=== PATIENT | female | born 1945 | race Caucasian/White ===

== ENCOUNTER 2017-08-29 18:33 | Inpatient (IN) | payer OTHER, MEDICARE ==
[~2017-08-29] VITALS: Ht 167.6 cm; Wt 70.5 kg
[2017-08-29 18:35] VITALS: O2SAT 94
[2017-08-29] MEDS ORDERED: MORPHINE SULFATE 4 MG/ML INJ ONE (18:38)
[2017-08-29] MEDS ORDERED: ONDANSETRON HCL 4 MG/2 ML VIAL ONE (18:38)
[2017-08-29 18:58] LABS: AUTOMATED NEUTROPHIL # 12.5 TH/MM3 (1.8-7.7); BASOPHIL # 0.1 TH/MM3 (0-0.2); BASOPHIL % 0.4 % (0.0-2.0); EOSINOPHIL # 0.1 TH/MM3 (0-0.4); EOSINOPHIL % 0.6 % (0.0-4.0); HEMATOCRIT 40.3 % (35.0-46.0); HEMOGLOBIN 13.3 GM/DL (11.6-15.3); LYMPH % 19.9 % (9.0-44.0); LYMPHOCYTE # 3.3 TH/MM3 (1.0-4.8); MEAN CELL VOLUME 97.9 FL (80.0-100.0); MEAN CORPUSCULAR HEMOGLOBIN 32.2 PG (27.0-34.0); MEAN PLATELET VOLUME 7.4 FL (7.0-11.0); MONO % 3.3 % (0.0-8.0); MONOCYTE # 0.5 TH/MM3 (0-0.9); NEUT % 75.8 % (16.0-70.0); PLATELET COUNT 270 TH/MM3 (150-450); RED BLOOD COUNT 4.12 MIL/MM3 (4.00-5.30); RED CELL DISTRIBUTION WIDTH 13.8 % (11.6-17.2); WHITE BLOOD COUNT 16.5 TH/MM3 (4.0-11.0)
[2017-08-29] MEDS ORDERED: PROMETHAZINE INJ 25 MG/ML VIAL IM ONE (19:00)
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
[2017-08-29 19:14] LABS: PROTHROMBIN TIME - PATIENT 10.6 SEC (9.8-11.6)
[2017-08-29] MEDS ORDERED: IOHEXOL 350 MG/ML 10 ML VIAL (for RAD DIAG) IVCONTRAST ONE (19:14)
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
[2017-08-29] MEDS ORDERED: CHLORHEXIDINE GLUCONATE 2 % 1 PACK (2 CLOTHS) TOP PRN (19:45)
[2017-08-29] MEDS ORDERED: BISACODYL 10 MG SUPP RECTAL PRN (19:45)
[2017-08-29] MEDS ORDERED: LACTULOSE SYRUP 20 GM/30 ML CUP PO PRN (19:45)
[2017-08-29] MEDS ORDERED: MAGNESIUM HYDROXIDE SUSP 30 ML CUP PO PRN (19:45)
[2017-08-29] MEDS ORDERED: MISCELLANEOUS NURSING INFORMATION XX SCH (19:45)
[2017-08-29] MEDS ORDERED: METOCLOPRAMIDE HCL 10 MG/2 ML VIAL IV PUSH PRN (19:45)
[2017-08-29] MEDS ORDERED: SENNOSIDES 8.6 MG TAB PO PRN (19:45)
[2017-08-29] MEDS ORDERED: HYDROmorphone HCL PF 2 MG/ML VIAL IV PUSH PRN ×2 (19:45)
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
[2017-08-29 20:00] VITALS: BP 136/65; PULSE 78; PULSE 82; RESP 20; TEMP 97.3; O2SAT 96
[2017-08-29] MEDS: SODIUM CHLOR 0.9% 1000 ML INJ 1,000 ML IV SCH (20:36)
[2017-08-29] MEDS: ACETAMINOPHEN 1000 MG/100 ML 100 ML IV SCH (20:36)
[2017-08-29] MEDS: METHOCARBAMOL 500 MG TAB PO SCH (20:46)
[2017-08-29] MEDS: DOCUSATE SODIUM 50 MG/SENNA 8.6 MG TAB PO SCH (21:00)
[2017-08-29] MEDS ORDERED: MORPHINE SULFATE 2 MG/ML INJ IV PUSH PRN ×2 (21:00)
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
[2017-08-29] MEDS: LIDOCAINE HCL 5% PATCH T-DERMAL SCH (21:11)
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
[2017-08-29 22:00] VITALS: PULSE 64
[2017-08-30] VITALS (10 sets, daily range): BP systolic 107–145; BP diastolic 65–86; PULSE 74–85; RESP 16–24; TEMP 96.1–98.9; O2SAT 95–99
[2017-08-30] MEDS ORDERED: MAGNESIUM SULFATE INJ 2 GM in SODIUM CHLORIDE 0.9% INJ 96 ML IV PRN (02:30)
[2017-08-30] MEDS ORDERED: POTASSIUM CHLOR 20 MEQ PREMIX 100 ML IV PRN ×2 (02:30)
[2017-08-30] MEDS ORDERED: POTASSIUM CHLOR 40 MEQ PREMIX 100 ML IV PRN ×2 (02:30)
[2017-08-30] MEDS ORDERED: MAGNESIUM OXIDE 400 MG TAB PO PRN (02:30)
[2017-08-30] MEDS ORDERED: POTASSIUM PHOSPHATE MONOBASIC 500 MG TAB PO/TUBE PRN (02:30)
[2017-08-30] MEDS ORDERED: MAGNESIUM SULFATE INJ 4 GM in SODIUM CHLORIDE 0.9% INJ 92 ML IV PRN (02:30)
[2017-08-30] MEDS ORDERED: POTASSIUM PHOSPHATE INJ 30 MMOL in SODIUM CHLOR 0.9% 250 ML INJ 250 ML IV PRN (02:30)
[2017-08-30] MEDS ORDERED: POTASSIUM PHOSPHATE MONOBASIC 500 MG TAB PO PRN (02:30)
[2017-08-30] MEDS ORDERED: SODIUM PHOSPHATE INJ 30 MMOL in SODIUM CHLOR 0.9% 250 ML INJ 240 ML IV PRN (02:30)
[2017-08-30] MEDS ORDERED: POTASSIUM CHLORIDE 25 MEQ EFFERVESCENT TAB PO PRN (02:30)
[2017-08-30] MEDS: ACETAMINOPHEN 1000 MG/100 ML 100 ML IV SCH ×3 (03:21→15:00)
[2017-08-30] MEDS: ONDANSETRON HCL 4 MG/2 ML VIAL IV PUSH PRN ×2 (03:22→07:30)
[2017-08-30] MEDS ORDERED: CHLORHEXIDINE GLUCONATE 2 % 1 PACK (2 CLOTHS) TOP SCH (04:00)
[2017-08-30 04:42] LABS: AUTOMATED NEUTROPHIL # 13.7 TH/MM3 (1.8-7.7); BASOPHIL % 0.1 % (0.0-2.0); HEMATOCRIT 37.5 % (35.0-46.0); HEMOGLOBIN 12.8 GM/DL (11.6-15.3); LYMPH % 6.5 % (9.0-44.0); MEAN CELL VOLUME 97.5 FL (80.0-100.0); MEAN CORPUSCULAR HEMOGLOBIN 33.3 PG (27.0-34.0); MEAN CORPUSCULAR HGB CONC 34.1 % (32.0-36.0); MEAN PLATELET VOLUME 7.8 FL (7.0-11.0); MONO % 4.4 % (0.0-8.0); MONOCYTE # 0.7 TH/MM3 (0-0.9); PLATELET COUNT 218 TH/MM3 (150-450); RED BLOOD COUNT 3.84 MIL/MM3 (4.00-5.30); RED CELL DISTRIBUTION WIDTH 13.9 % (11.6-17.2); WHITE BLOOD COUNT 15.4 TH/MM3 (4.0-11.0)
[2017-08-30] MEDS: METHOCARBAMOL 500 MG TAB PO SCH ×3 (04:48→21:46)
[2017-08-30 05:05] LABS: BICARBONATE 22.7 MEQ/L (21.0-32.0); CALCIUM 8.4 MG/DL (8.5-10.1); CREATININE 0.77 MG/DL (0.50-1.00); MAGNESIUM 2.3 MG/DL (1.5-2.5); PHOSPHORUS 3.2 MG/DL (2.5-4.9)
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
[2017-08-30] MEDS: FAMOTIDINE 20 MG TAB PO SCH ×2 (07:31→19:50)
[2017-08-30] MEDS: SODIUM CHLOR 0.9% 1000 ML INJ 1,000 ML IV SCH (07:32)
[2017-08-30] MEDS: DOCUSATE SODIUM 50 MG/SENNA 8.6 MG TAB PO SCH ×2 (07:32→19:50)
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
[2017-08-30] MEDS: REMOVE OLD LIDOCAINE PATCH T-DERMAL SCH (09:00)
[2017-08-30] MEDS ORDERED: PROMETHAZINE INJ 25 MG/ML VIAL ONE (11:20)
[2017-08-30] MEDS ORDERED: PROMETHAZINE INJ 25 MG/ML VIAL IM ONE (11:20)
[2017-08-30] MEDS ORDERED: GENTAMICIN SULFATE 80 MG/2 ML VIAL ONE (11:54)
[2017-08-30] MEDS ORDERED: ceFAZolin 2 GM PREMIX 50 ML ONE (11:54)
[2017-08-30] MEDS ORDERED: VANCOMYCIN HCL 1000 MG VIAL ONE (11:54)
[2017-08-30] MEDS ORDERED: DEXAMETHASONE SOD PHOS 4 MG/ML VIAL IV ONE (12:00)
[2017-08-30] MEDS ORDERED: PHENYLEPH/NS 1000 MCG/10 ML SYR IV ONE (12:00)
[2017-08-30] MEDS ORDERED: SUCCINYLCHOLINE CHLORIDE 200 MG/10 ML VIAL IV ONE (12:00)
[2017-08-30] MEDS ORDERED: LIDOCAINE HCL 1% PF 5 ML SYRINGE OTHER ONE (12:00)
[2017-08-30] MEDS ORDERED: PROPOFOL 200 MG/20 ML AMP IV ONE (12:00)
[2017-08-30] MEDS ORDERED: ePHEDrine/NS 25 MG/5 ML SYRINGE IV ONE (12:00)
[2017-08-30] MEDS ORDERED: ONDANSETRON HCL 4 MG/2 ML VIAL IV ONE (12:00)
[2017-08-30] MEDS ORDERED: HYDR-3580 PO (12:35)
[2017-08-30] MEDS ORDERED: CALCTAB19 PO (12:35)
[2017-08-30] MEDS ORDERED: XARE10TA PO (12:35)
[2017-08-30] MEDS ORDERED: VITA2000 PO (12:35)
[2017-08-30] MEDS ORDERED: VITA500012 PO (12:35)
[2017-08-30] MEDS ORDERED: WALKER/ADULT/FO1 MIS (12:35)
--- NOTE | 2017-08-30 12:35 | HHI.FF ---
Face to Face Verification Diagnosis: (1) Fracture of left tibia and fibula Physical Therapy Gait training, Safety evaluation, Wheelchair training Left LE Weight Bearing: Non WB Nursing Dressing Changes: Do not change dressing I have seen patient Donna Sánchez on 08/30/17. My clinical findings support the need for the requested home health care services because: Ltd mobility - disease progression I certify that my clinical findings support that this patient is homebound because: Post-op weakness Trevor Clark/[employer] HORTENCIA Aug 30, 2017 12:35
--- NOTE | 2017-08-30 12:37 | PD.ORT.PN ---
Subjective Subjective Remarks POD 0 s/p IMN left tibia and ORIF left distal fibula stable in PACU Objective Vitals Vital Signs Date Time Temp Pulse Resp B/P (MAP) Pulse Ox O2 Delivery O2 Flow Rate FiO2 08/30/17 12:04 98.5 79 20 116/68 (84) 95 08/30/17 11:08 98.5 74 20 93/56 (68) 95 08/30/17 10:00 78 08/30/17 08:00 97.6 74 17 113/71 (85) 98 08/30/17 08:00 98 Nasal Cannula 4.00 08/30/17 08:00 74 08/30/17 06:00 79 08/30/17 04:00 98.9 85 24 128/74 (92) 95 08/30/17 04:00 78 08/30/17 02:16 96 Nasal Cannula 4.00 08/30/17 02:00 77 08/30/17 00:00 76 08/30/17 00:00 97.6 76 23 131/65 (87) 99 08/29/17 22:00 64 08/29/17 20:00 97.3 78 20 136/65 (88) 96 08/29/17 20:00 96 Nasal Cannula 6.00 08/29/17 20:00 82 08/29/17 18:35 94 4.00 I/O 08/29/17 08/29/17 08/29/17 08/30/17 08/30/17 08/30/17 07:00 15:00 23:00 07:00 15:00 23:00 Intake Total 1039 ml Output Total 900 ml Balance 139 ml Intake IV Total 1039 ml Output Urine Total 900 ml Result Diagram: 08/30/17 0349 08/30/17 0349 Other Results Laboratory Tests Test 08/29/17 18:35 Prothromb Time International Ratio 1.0 RATIO Prothrombin Time 10.6 SEC (9.8-11.6) Imaging Last 24 hours Impressions Chest X-Ray 08/30/17 0000 Signed Impressions: Service Date/Time: Wednesday, August 30, 2017 04:12 - CONCLUSION: 1. Interval development of left lower lobe airspace disease and probable small pleural effusion. Grant Kohler MD Thoracic Spine CT 08/29/17 3376 Signed Impressions: Service Date/Time: August 18:52 - CONCLUSION: No acute disease. Satnam Egan Jr., MD Pelvis X-Ray 08/29/171834 Signed Impressions: Service Date/Time: August 18:35 - CONCLUSION: Acute pubic rami fractures on the left. Satnam Egan Jr., MD Maxillofacial CT 08/29/171834 Signed Impressions: Service Date/Time: August 18:48 - CONCLUSION: No acute disease. Satnam Egan Jr., MD Lumbar Spine CT 08/29/171834 Signed Impressions: Service Date/Time: August 18:52 - CONCLUSION: 1. No fracture or dislocation. 2. Bilateral L5 pars defects with grade 1 anterolisthesis. 3. Degenerative changes. Satnam Egan Jr., MD Head CT 08/29/171834 Signed Impressions: Service Date/Time: August 18:45 - CONCLUSION: No acute disease. Satnam Egan Jr., MD Chest X-Ray 08/29/171834 Signed Impressions: Service Date/Time: August 18:35 - CONCLUSION: No acute disease. Satnam Egan Jr., MD Chest CT 08/29/171834 Signed Impressions: Service Date/Time: August 18:54 - CONCLUSION: 1. Small left pneumothorax. 2. Acute left second through seventh rib fractures and left scapular fracture. 3. Scattered areas of dependent atelectasis. Satnam Egan Jr., MD Cervical Spine CT 08/29/171834 Signed Impressions: Service Date/Time: August 18:47 - CONCLUSION: 1. No fracture or dislocation. 2. Multilevel degenerative changes. Satnam Egan Jr., MD Abdomen/Pelvis CT 08/29/171834 Signed Impressions: Service Date/Time: August 18:54 - CONCLUSION: 1. Acute fractures involving the superior and inferior pubic rami on the left with an associated small hematoma within the pelvis. Satnam Egan Jr., MD Objective Remarks LLE: +short leg splint present in good repair. +cap refill Assessment & Plan Assessment and Plan 1) Left distal Tibia and fibula fxs s/p IMN - POD 0 -NWB -elevate -maintain splint at all times -DVT prophylaxis -DC home with [facility] vs SNF placement -plan for DC home when stable -f/u with Shila or PA in 2 weeks Trevor Clark/First Hilda BURNETT Aug 30, 2017 12:37
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
--- NOTE | 2017-08-30 13:22 | PD.OP ---
cc: Sharad Kay MD Operative Report Date of Surgery: Aug 30, 2017 Preoperative Diagnosis: Displaced left distal tibia and fibula shaft fractures Postoperative Diagnosis: Procedure: Left tibia reduction and intramedullary nail fixation Left fibula reduction and internal fixation Anesthesia: Gen. Surgeon: Sharad Kay Sign Artist(s): JORDYN Benítez PA-C The surgical procedure was assisted by my physician assistant paralegal. My P.A. presence was necessary throughout this case for the manipulation and positioning of the surgical extremity. My P.A. was assisting me throughout the duration of this procedure. The skill set of a physician assistant paralegal was medically necessary to complete this procedure. During the surgical case the radiation technician was working at the back table and the physician assistant paralegal was directly assisting me. Operation and Findings: Implants: ITS [10]mm x [345]mm tibial nail Plan of activity: Nonweightbearing left leg Patient was seen and examined preoperatively. An informed consent was obtained from patient after detailed discussion of risk and benefits. Risks of surgery include bleeding, infection, painful hardware, nonunion, malunion, leg length discrepancy, need for hardware removal, and medical complications associated with anesthesia including blood clots, stroke, heart attack, and were discussed. Operative site was marked. Patient was brought to the operating room placed on or table. Patient received IV antibiotics and was given IV sedation GETA. Operative leg was prepped with alcohol Hibiclens and draped in usual sterile fashion. Timeout procedure was performed Procedure began with reduction of fracture. 2 small incisions were made around the fracture site. A percutaneous clamp was placed. Traction was applied. Fracture was reduced. There was comminution of the fracture. The fracture reduced and excellent alignment was achieved. Next a 3 cm incision was made proximal to the patella. Quadriceps tendon was split in line with fibers. Cannulas were placed in the patellofemoral joint to protect the articular surface at all times. A guidepin was placed into the tibia and advanced in the tibial canal. Fluoroscopy was used to confirm appropriate guidepin placement. An opening reamer was used to open the tibial canal. A ball-tipped guidewire was advanced down the tibial canal. Guidepin was passed across the fracture site into the center of the distal tibia. Fluoroscopy confirmed guidepin placement. The nail length was now measured. The fracture was now held in a reduced position and the canal was reamed. The canal was reamed up to appropriate size. A ITS nail was now selected. Next the nail was fully seated. Using perfect [place] technique 4 distal interlocking screws were placed. The nail was now gently back slapped to compress fracture. Using the insertion handle as a guide 1 proximal interlocking screw was placed. Fluoroscopy confirmed excellent of fracture with well-placed hardware. Next attention was turned to the fibula. The fibular fracture was gently manipulated. Percutaneous reduction was achieved. A 1 similar incision was made distal to the fibula. A drill was used to penetrate the cortex of the distal fibula. Next an Otto type flexible marc was selected. The flexible nail was now placed into the fibula. The fracture was held in reduced position. The marc was advanced across the fracture site into the fibular shaft. Fluoroscopy confirmed appropriate reduction of fracture with well- placed hardware. Incisions and the knee joint were thoroughly irrigated with sterile saline. Fascia was closed with #1 Vicryl, subcutaneous tissues closed with 3-0 Vicryl and skin was closed with yasmine. Sterile dressings and well padded splint were applied. Patient was awakened and transferred to recovery in stable condition. Sharad Kay MD Aug 30, 2017 13:22
[2017-08-30] MEDS ORDERED: DO NOT ADM ANY ANTICOAGULANT DRUGS PRN (13:50)
[2017-08-30] MEDS ORDERED: diphenhydrAMINE HCL 25 MG CAP PO PRN (14:15)
[2017-08-30] MEDS ORDERED: ERGOCALCIFEROL (VIT D2) 50,000 UNIT CAP PO SCH (14:15)
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
[2017-08-30] MEDS: LACTATED RINGER'S 1000 ML INJ 1,000 ML IV SCH (15:00)
[2017-08-30] MEDS: CALCIUM/VITAMIN D 250 MG/125 U TAB PO SCH (18:00)
[2017-08-30] MEDS: ACETAMINOPHEN/HYDROcodone 325 MG/7.5 MG TAB PO PRN (18:00)
[2017-08-30] MEDS: ceFAZolin 2 GM PREMIX 50 ML IV SCH (19:49)
[2017-08-30] MEDS: LIDOCAINE HCL 5% PATCH T-DERMAL SCH (19:51)
[2017-08-31] VITALS (9 sets, daily range): BP systolic 97–147; BP diastolic 58–72; PULSE 69–83; RESP 16–20; TEMP 96–98.7; O2SAT 84–96
[2017-08-31] MEDS: ENOXAPARIN SODIUM 30 MG/0.3 ML SYRINGE SQ SCH (01:12)
[2017-08-31] MEDS: LACTATED RINGER'S 1000 ML INJ 1,000 ML IV SCH ×4 (01:14→22:25)
[2017-08-31] MEDS: VANCOMYCIN INJ 1,000 MG in SODIUM CHLOR 0.9% 250 ML INJ 250 ML IV SCH ×2 (01:15→12:02)
[2017-08-31 04:07] LABS: AUTOMATED NEUTROPHIL # 10.6 TH/MM3 (1.8-7.7); BASOPHIL % 0.4 % (0.0-2.0); EOSINOPHIL % 0.1 % (0.0-4.0); HEMATOCRIT 32.1 % (35.0-46.0); HEMOGLOBIN 10.7 GM/DL (11.6-15.3); LYMPH % 9.4 % (9.0-44.0); LYMPHOCYTE # 1.2 TH/MM3 (1.0-4.8); MEAN CELL VOLUME 96.8 FL (80.0-100.0); MEAN CORPUSCULAR HEMOGLOBIN 32.1 PG (27.0-34.0); MEAN CORPUSCULAR HGB CONC 33.2 % (32.0-36.0); MEAN PLATELET VOLUME 7.6 FL (7.0-11.0); MONO % 4.3 % (0.0-8.0); MONOCYTE # 0.5 TH/MM3 (0-0.9); NEUT % 85.8 % (16.0-70.0); PLATELET COUNT 177 TH/MM3 (150-450); RED BLOOD COUNT 3.32 MIL/MM3 (4.00-5.30); RED CELL DISTRIBUTION WIDTH 13.7 % (11.6-17.2); WHITE BLOOD COUNT 12.3 TH/MM3 (4.0-11.0)
[2017-08-31] MEDS: ceFAZolin 2 GM PREMIX 50 ML IV SCH ×2 (04:30→12:02)
[2017-08-31 04:34] LABS: ALBUMIN 2.9 GM/DL (3.4-5.0); AST (GOT) 35 U/L (15-37); BICARBONATE 24.1 MEQ/L (21.0-32.0); BLOOD UREA NITROGEN 11 MG/DL (7-18); CALCIUM 8.2 MG/DL (8.5-10.1); CHLORIDE 105 MEQ/L (98-107); CREATININE 0.69 MG/DL (0.50-1.00); GLOMERULAR FILTRATION RATE 84 ML/MIN (>89); GLUCOSE,RANDOM 106 MG/DL (74-106); SODIUM (NA) 138 MEQ/L (136-145)
[2017-08-31 04:37] LABS: ALKALINE PHOSPHATASE 54 U/L (45-117); ALT (GPT) 26 U/L (10-53); TOTAL BILIRUBIN ADULT 0.4 MG/DL (0.2-1.0); TOTAL PROTEIN 6.2 GM/DL (6.4-8.2)
[2017-08-31] MEDS: METHOCARBAMOL 500 MG TAB PO SCH ×3 (05:10→20:20)
[2017-08-31] MEDS: ACETAMINOPHEN/HYDROcodone 325 MG/7.5 MG TAB PO PRN ×2 (05:10→09:04)
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
[2017-08-31] MEDS: REMOVE OLD LIDOCAINE PATCH T-DERMAL SCH (09:00)
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
[2017-08-31] MEDS: DOCUSATE SODIUM 50 MG/SENNA 8.6 MG TAB PO SCH ×2 (09:05→20:20)
[2017-08-31] MEDS: LACTULOSE SYRUP 20 GM/30 ML CUP PO SCH (09:05)
[2017-08-31] MEDS: FAMOTIDINE 20 MG TAB PO SCH ×2 (09:05→20:20)
[2017-08-31] MEDS: CHOLECALCIFEROL (VIT D3) 1000 UNIT TAB PO SCH (09:05)
[2017-08-31] MEDS: ASCORBIC ACID 500 MG TAB PO SCH (09:05)
[2017-08-31] MEDS: CALCIUM/VITAMIN D 250 MG/125 U TAB PO SCH ×3 (09:05→17:11)
[2017-08-31] MEDS: MAGNESIUM HYDROXIDE SUSP 30 ML CUP PO SCH ×2 (09:06→20:19)
--- NOTE | 2017-08-31 11:33 | PD.ORT.PN ---
Subjective Subjective Remarks feeling better than overnight Objective Vitals Vital Signs Date Time Temp Pulse Resp B/P (MAP) Pulse Ox O2 Delivery O2 Flow Rate FiO2 08/31/17 08:00 98.7 77 16 115/71 (86) 92 08/31/17 07:48 93 Nasal Cannula 3.00 08/31/17 03:46 77 08/31/17 00:00 97.8 80 16 109/72 (84) 95 08/30/17 23:24 78 08/30/17 20:20 82 08/30/17 20:00 97.0 84 16 107/72 (84) 95 08/30/17 19:45 Nasal Cannula 2.00 08/30/17 16:00 96.1 78 16 145/86 (105) 95 08/30/17 14:45 97.6 75 16 137/76 (96) 94 Nasal Cannula 3 08/30/17 14:30 77 16 133/71 (91) 93 Nasal Cannula 3 08/30/17 14:15 79 15 134/75 (94) 92 Nasal Cannula 3 08/30/17 14:00 81 15 135/81 (99) 92 Nasal Cannula 3 08/30/17 13:45 97.6 87 14 132/77 (95) 96 Nasal Cannula 3 08/30/17 12:04 98.5 79 20 116/68 (84) 95 I/O 08/30/17 08/30/17 08/30/17 08/31/17 08/31/17 08/31/17 07:00 15:00 23:00 07:00 15:00 23:00 Intake Total 1039 ml 1000 ml 480 ml Output Total 900 ml 475 ml 1000 ml Balance 139 ml 525 ml -520 ml Intake Oral 480 ml IV Total 1039 ml Other 1000 ml Output Urine Total 900 ml 425 ml 1000 ml Estimated Blood Loss 50 ml Result Diagram: 08/31/17 0331 08/31/17 0331 Imaging Last 24 hours Impressions Chest X-Ray 08/30/17 0000 Signed Impressions: Service Date/Time: Wednesday, August 30, 2017 04:12 - CONCLUSION: 1. Interval development of left lower lobe airspace disease and probable small pleural effusion. Grant Kohler MD Thoracic Spine CT 08/29/17 1835 Signed Impressions: Service Date/Time: August 18:52 - CONCLUSION: No acute disease. Satnam Egan Jr., MD Pelvis X-Ray 08/29/171834 Signed Impressions: Service Date/Time: August 18:35 - CONCLUSION: Acute pubic rami fractures on the left. Satnam Egan Jr., MD Maxillofacial CT 08/29/171834 Signed Impressions: Service Date/Time: August 18:48 - CONCLUSION: No acute disease. Satnam Egan Jr., MD Lumbar Spine CT 08/29/171834 Signed Impressions: Service Date/Time: August 18:52 - CONCLUSION: 1. No fracture or dislocation. 2. Bilateral L5 pars defects with grade 1 anterolisthesis. 3. Degenerative changes. Satnam Egan Jr., MD Head CT 08/29/171834 Signed Impressions: Service Date/Time: August 18:45 - CONCLUSION: No acute disease. Satnam Egan Jr., MD Chest X-Ray 08/29/171834 Signed Impressions: Service Date/Time: August 18:35 - CONCLUSION: No acute disease. Satnam Egan Jr., MD Chest CT 08/29/171834 Signed Impressions: Service Date/Time: August 18:54 - CONCLUSION: 1. Small left pneumothorax. 2. Acute left second through seventh rib fractures and left scapular fracture. 3. Scattered areas of dependent atelectasis. Satnam Egan Jr., MD Cervical Spine CT 08/29/171834 Signed Impressions: Service Date/Time: August 18:47 - CONCLUSION: 1. No fracture or dislocation. 2. Multilevel degenerative changes. Satnam Egan Jr., MD Abdomen/Pelvis CT 08/29/171834 Signed Impressions: Service Date/Time: August 18:54 - CONCLUSION: 1. Acute fractures involving the superior and inferior pubic rami on the left with an associated small hematoma within the pelvis. Satnam Egan Jr., MD Objective Remarks LLE: +short leg splint present in good repair. +cap refill. Leg elevated Assessment & Plan Assessment and Plan 1) Left distal Tibia and fibula fxs s/p IMN - POD 1 -NWB -elevate -maintain splint at all times -DVT prophylaxis -DC home with C vs SNF placement -plan for DC home when stable -f/u with [facility] or [facility] in 2 weeks Josh Love Jr., MD Aug 31, 2017 11:32
[2017-08-31] MEDS ORDERED: oxyCODONE/ACETAMINOPHEN 10 MG/325 MG TAB PO PRN (12:00)
[2017-08-31] MEDS: KETOROLAC TROMETHAMINE 30 MG/ML (IVP) VIAL IV PUSH SCH ×2 (12:03→17:12)
[2017-08-31] MEDS: GABAPENTIN 300 MG CAP PO SCH ×2 (12:03→17:11)
--- NOTE | 2017-08-31 13:13 | EKG ---
Date Performed: 08/30/2017 Time Performed: 04:41:46 PTAGE: 72 years EKG: Sinus rhythm . Normal ECG NO PREVIOUS TRACING DOCTOR: Ant Hoyos Interpretating Date/Time 08/31/2017 13:12:46
[2017-08-31] MEDS: ONDANSETRON HCL 4 MG/2 ML VIAL IV PUSH PRN (13:27)
[2017-08-31] MEDS: LIDOCAINE HCL 5% PATCH T-DERMAL SCH (20:20)
[2017-09-01] VITALS (10 sets, daily range): BP systolic 98–121; BP diastolic 60–76; PULSE 66–80; RESP 18–20; TEMP 96.3–98.1; O2SAT 93–97
[2017-09-01] MEDS: ENOXAPARIN SODIUM 30 MG/0.3 ML SYRINGE SQ SCH (00:01)
[2017-09-01] MEDS ORDERED: LEVO.075 PO (02:18)
[2017-09-01] MEDS: METHOCARBAMOL 500 MG TAB PO SCH ×3 (05:04→19:56)
[2017-09-01] MEDS: KETOROLAC TROMETHAMINE 30 MG/ML (IVP) VIAL IV PUSH SCH ×4 (05:04→18:15)
[2017-09-01] MEDS: oxyCODONE/ACETAMINOPHEN 5 MG/325 MG TAB PO PRN ×3 (05:05→19:51)
[2017-09-01 05:18] LABS: AUTOMATED NEUTROPHIL # 8.5 TH/MM3 (1.8-7.7); BASOPHIL # 0.1 TH/MM3 (0-0.2); BASOPHIL % 0.6 % (0.0-2.0); EOSINOPHIL # 0.2 TH/MM3 (0-0.4); HEMATOCRIT 28.4 % (35.0-46.0); HEMOGLOBIN 9.5 GM/DL (11.6-15.3); LYMPH % 14.1 % (9.0-44.0); LYMPHOCYTE # 1.5 TH/MM3 (1.0-4.8); MEAN CORPUSCULAR HEMOGLOBIN 32.7 PG (27.0-34.0); MEAN CORPUSCULAR HGB CONC 33.3 % (32.0-36.0); MEAN PLATELET VOLUME 8.2 FL (7.0-11.0); MONO % 6.1 % (0.0-8.0); MONOCYTE # 0.7 TH/MM3 (0-0.9); NEUT % 77.2 % (16.0-70.0); PLATELET COUNT 150 TH/MM3 (150-450); RED CELL DISTRIBUTION WIDTH 13.9 % (11.6-17.2)
[2017-09-01 05:24] LABS: ALBUMIN 2.5 GM/DL (3.4-5.0); AST (GOT) 27 U/L (15-37); BICARBONATE 27.1 MEQ/L (21.0-32.0); BLOOD UREA NITROGEN 15 MG/DL (7-18); CALCIUM 8.3 MG/DL (8.5-10.1); CHLORIDE 104 MEQ/L (98-107); CREATININE 0.74 MG/DL (0.50-1.00); GLOMERULAR FILTRATION RATE 77 ML/MIN (>89); GLUCOSE,RANDOM 93 MG/DL (74-106); SODIUM (NA) 135 MEQ/L (136-145)
[2017-09-01 05:25] LABS: ALT (GPT) 15 U/L (10-53)
[2017-09-01 05:27] LABS: ALKALINE PHOSPHATASE 50 U/L (45-117); TOTAL BILIRUBIN ADULT 0.4 MG/DL (0.2-1.0); TOTAL PROTEIN 5.6 GM/DL (6.4-8.2)
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
[2017-09-01] MEDS ORDERED: PERI PO (08:45)
[2017-09-01] MEDS ORDERED: MAGN30S PO (08:45)
[2017-09-01] MEDS ORDERED: TRANSFER BENCH1 MIS (08:48)
[2017-09-01] MEDS ORDERED: COMMODE 3-IN-11 MIS (08:48)
[2017-09-01] MEDS ORDERED: WHEEMIS3 (08:48)
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
[2017-09-01] MEDS: REMOVE OLD LIDOCAINE PATCH T-DERMAL SCH (09:00)
[2017-09-01] MEDS: MAGNESIUM HYDROXIDE SUSP 30 ML CUP PO SCH ×2 (10:21→19:50)
[2017-09-01] MEDS: ASCORBIC ACID 500 MG TAB PO SCH (10:21)
[2017-09-01] MEDS: CALCIUM/VITAMIN D 250 MG/125 U TAB PO SCH ×3 (10:21→18:15)
[2017-09-01] MEDS: LACTULOSE SYRUP 20 GM/30 ML CUP PO SCH (10:21)
[2017-09-01] MEDS: GABAPENTIN 300 MG CAP PO SCH ×3 (10:22→18:15)
[2017-09-01] MEDS: FAMOTIDINE 20 MG TAB PO SCH ×2 (10:22→19:50)
[2017-09-01] MEDS: DOCUSATE SODIUM 50 MG/SENNA 8.6 MG TAB PO SCH ×2 (10:22→19:50)
[2017-09-01] MEDS: CHOLECALCIFEROL (VIT D3) 1000 UNIT TAB PO SCH (10:22)
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
[2017-09-01] MEDS ORDERED: RESP: ALBUTEROL 2.5 MG/IPRATROPIUM 0.5 MG NEB (PRN) NEB (11:45)
--- NOTE | 2017-09-01 12:52 | PD.ORT.PN ---
Subjective Subjective Remarks no issues. having BM Objective Vitals Vital Signs Date Time Temp Pulse Resp B/P (MAP) Pulse Ox O2 Delivery O2 Flow Rate FiO2 09/01/17 11:46 96.8 66 18 117/69 (85) 95 09/01/17 07:52 97.9 72 18 98/60 (73) 96 09/01/17 07:22 93 Nasal Cannula 5.00 09/01/17 04:00 96.3 74 20 105/68 (80) 95 09/01/17 03:49 67 09/01/17 00:00 97.6 78 18 108/69 (82) 94 09/01/17 00:00 70 08/31/17 20:37 89 Nasal Cannula 5.00 08/31/17 20:18 94 Nasal Cannula 5.00 Humidified 08/31/17 20:04 69 08/31/17 20:00 96.0 83 20 147/65 (92) 84 08/31/17 16:00 96.6 83 18 97/58 (71) 92 I/O 08/31/17 08/31/17 08/31/17 09/01/17 09/01/17 09/01/17 07:00 15:00 23:00 07:00 15:00 23:00 Intake Total 480 ml 650 ml 245 ml 720 ml Output Total 1000 ml 775 ml 120 ml Balance -520 ml -125 ml 125 ml 720 ml Intake Oral 480 ml 600 ml 720 ml IV Total 50 ml 245 ml Output Urine Total 1000 ml 775 ml 120 ml # Voids 2 # Bowel Movements 0 0 Result Diagram: 09/01/17 0439 09/01/17 0439 Imaging Last 24 hours Impressions Chest X-Ray 08/30/17 0000 Signed Impressions: Service Date/Time: Wednesday, August 30, 2017 04:12 - CONCLUSION: 1. Interval development of left lower lobe airspace disease and probable small pleural effusion. Grant Kohler MD Thoracic Spine CT 08/29/171834 Signed Impressions: Service Date/Time: August 18:52 - CONCLUSION: No acute disease. Satnam Egan Jr., MD Pelvis X-Ray 08/29/171834 Signed Impressions: Service Date/Time: August 18:35 - CONCLUSION: Acute pubic rami fractures on the left. Satnam Egan Jr., MD Maxillofacial CT 08/29/171834 Signed Impressions: Service Date/Time: August 18:48 - CONCLUSION: No acute disease. Satnam Egan Jr., MD Lumbar Spine CT 08/29/171834 Signed Impressions: Service Date/Time: August 18:52 - CONCLUSION: 1. No fracture or dislocation. 2. Bilateral L5 pars defects with grade 1 anterolisthesis. 3. Degenerative changes. Satnam Egan Jr., MD Head CT 08/29/171834 Signed Impressions: Service Date/Time: August 18:45 - CONCLUSION: No acute disease. Satnam Egan Jr., MD Chest X-Ray 08/29/171834 Signed Impressions: Service Date/Time: August 18:35 - CONCLUSION: No acute disease. Satnam Egan Jr., MD Chest CT 08/29/171834 Signed Impressions: Service Date/Time: August 18:54 - CONCLUSION: 1. Small left pneumothorax. 2. Acute left second through seventh rib fractures and left scapular fracture. 3. Scattered areas of dependent atelectasis. Satnam Egan Jr., MD Cervical Spine CT 08/29/171834 Signed Impressions: Service Date/Time: August 18:47 - CONCLUSION: 1. No fracture or dislocation. 2. Multilevel degenerative changes. Satnam Egan Jr., MD Abdomen/Pelvis CT 08/29/171834 Signed Impressions: Service Date/Time: August 18:54 - CONCLUSION: 1. Acute fractures involving the superior and inferior pubic rami on the left with an associated small hematoma within the pelvis. Satnam Egan Jr., MD Objective Remarks LLE: +short leg splint present in good repair. +cap refill. Leg elevated Assessment & Plan Assessment and Plan 1) Left distal Tibia and fibula fxs s/p IMN - POD 2 -NWB -elevate -maintain splint at all times -DVT prophylaxis -DC home SNF likely -f/u with [facility] or [facility] in 2 weeks Josh Love Jr., MD Sep 01, 2017 12:52
[2017-09-01] MEDS: ONDANSETRON HCL 4 MG/2 ML VIAL IV PUSH PRN (14:57)
[2017-09-01] MEDS: RESP: ALBUTEROL 2.5 MG/IPRATROPIUM 0.5 MG NEB (SCH) NEB ×2 (15:38→21:24)
[2017-09-01] MEDS: LACTATED RINGER'S 1000 ML INJ 1,000 ML IV SCH (16:07)
[2017-09-01] MEDS: LIDOCAINE HCL 5% PATCH T-DERMAL SCH (19:52)
[2017-09-02] VITALS (11 sets, daily range): BP systolic 99–138; BP diastolic 54–80; PULSE 66–88; RESP 18–20; TEMP 96.3–97.9; O2SAT 91–98
[2017-09-02] MEDS: KETOROLAC TROMETHAMINE 30 MG/ML (IVP) VIAL IV PUSH SCH ×5 (00:54→23:50)
[2017-09-02] MEDS: ENOXAPARIN SODIUM 30 MG/0.3 ML SYRINGE SQ SCH ×2 (00:54→23:47)
[2017-09-02] MEDS: RESP: ALBUTEROL 2.5 MG/IPRATROPIUM 0.5 MG NEB (SCH) NEB ×5 (03:33→20:38)
[2017-09-02 04:19] LABS: AUTOMATED NEUTROPHIL # 5.2 TH/MM3 (1.8-7.7); BASOPHIL % 0.5 % (0.0-2.0); EOSINOPHIL # 0.5 TH/MM3 (0-0.4); EOSINOPHIL % 6.1 % (0.0-4.0); HEMOGLOBIN 9.7 GM/DL (11.6-15.3); LYMPH % 23.7 % (9.0-44.0); MEAN CELL VOLUME 97.1 FL (80.0-100.0); MEAN CORPUSCULAR HEMOGLOBIN 32.3 PG (27.0-34.0); MEAN CORPUSCULAR HGB CONC 33.3 % (32.0-36.0); MEAN PLATELET VOLUME 8.2 FL (7.0-11.0); MONO % 9.1 % (0.0-8.0); MONOCYTE # 0.8 TH/MM3 (0-0.9); NEUT % 60.6 % (16.0-70.0); PLATELET COUNT 176 TH/MM3 (150-450); RED BLOOD COUNT 2.99 MIL/MM3 (4.00-5.30); RED CELL DISTRIBUTION WIDTH 13.8 % (11.6-17.2); WHITE BLOOD COUNT 8.6 TH/MM3 (4.0-11.0)
[2017-09-02 04:36] LABS: ALBUMIN 2.4 GM/DL (3.4-5.0); AST (GOT) 21 U/L (15-37); BICARBONATE 29.6 MEQ/L (21.0-32.0); BLOOD UREA NITROGEN 16 MG/DL (7-18); CALCIUM 8.3 MG/DL (8.5-10.1); CHLORIDE 102 MEQ/L (98-107); CREATININE 0.78 MG/DL (0.50-1.00); GLOMERULAR FILTRATION RATE 73 ML/MIN (>89); GLUCOSE,RANDOM 86 MG/DL (74-106); SODIUM (NA) 135 MEQ/L (136-145)
[2017-09-02 04:37] LABS: ALT (GPT) 13 U/L (10-53)
[2017-09-02 04:39] LABS: ALKALINE PHOSPHATASE 48 U/L (45-117); TOTAL BILIRUBIN ADULT 0.4 MG/DL (0.2-1.0); TOTAL PROTEIN 5.6 GM/DL (6.4-8.2)
[2017-09-02] MEDS: oxyCODONE/ACETAMINOPHEN 5 MG/325 MG TAB PO PRN (05:31)
[2017-09-02] MEDS: METHOCARBAMOL 500 MG TAB PO SCH ×3 (05:31→20:22)
--- NOTE | 2017-09-02 06:27 | PD.ORT.PN ---
Subjective Subjective Remarks POD 3 s/p IMN left tibia and ORIF left distal fibula resting comfortably. no complaints. states pain controlled. Objective Vitals Vital Signs Date Time Temp Pulse Resp B/P (MAP) Pulse Ox O2 Delivery O2 Flow Rate FiO2 09/02/17 05:38 96 Nasal Cannula 3.00 Humidified 09/02/17 04:00 97.9 71 18 131/80 (97) 97 09/02/17 04:00 68 09/02/17 03:35 94 Nasal Cannula 5.00 09/02/17 00:45 66 09/02/17 00:00 96.7 85 20 103/64 (77) 91 09/01/17 21:25 75 09/01/17 21:25 95 Nasal Cannula 5.00 Humidified 09/01/17 19:21 98.1 72 18 107/67 (80) 95 09/01/17 15:39 96.9 80 20 121/76 (91) 95 09/01/17 15:38 97 Nasal Cannula 5.00 09/01/17 11:46 96.8 66 18 117/69 (85) 95 09/01/17 07:52 97.9 72 18 98/60 (73) 96 09/01/17 07:22 93 Nasal Cannula 5.00 I/O 09/01/17 09/01/17 09/01/17 09/02/17 09/02/17 09/02/17 07:00 15:00 23:00 07:00 15:00 23:00 Intake Total 720 ml 360 ml 360 ml 240 ml Balance 720 ml 360 ml 360 ml 240 ml Intake Oral 720 ml 360 ml 360 ml 240 ml # Voids 2 2 2 1 # Bowel Movements 0 4 4 0 Result Diagram: 09/02/17 0323 09/02/17 0323 Imaging Last 24 hours Impressions Chest X-Ray 08/30/17 0000 Signed Impressions: Service Date/Time: Wednesday, August 30, 2017 04:12 - CONCLUSION: 1. Interval development of left lower lobe airspace disease and probable small pleural effusion. Grant Kohler MD Thoracic Spine CT 08/29/171834 Signed Impressions: Service Date/Time: August 18:52 - CONCLUSION: No acute disease. Satnam Egan Jr., MD Pelvis X-Ray 08/29/171834 Signed Impressions: Service Date/Time: August 18:35 - CONCLUSION: Acute pubic rami fractures on the left. Satnam Egan Jr., MD Maxillofacial CT 08/29/171834 Signed Impressions: Service Date/Time: August 18:48 - CONCLUSION: No acute disease. Satnam Egan Jr., MD Lumbar Spine CT 08/29/171834 Signed Impressions: Service Date/Time: August 18:52 - CONCLUSION: 1. No fracture or dislocation. 2. Bilateral L5 pars defects with grade 1 anterolisthesis. 3. Degenerative changes. Satnam Egan Jr., MD Head CT 08/29/171834 Signed Impressions: Service Date/Time: August 18:45 - CONCLUSION: No acute disease. Satnam Egan Jr., MD Chest X-Ray 08/29/171834 Signed Impressions: Service Date/Time: August 18:35 - CONCLUSION: No acute disease. Satnam Egan Jr., MD Chest CT 08/29/171834 Signed Impressions: Service Date/Time: August 18:54 - CONCLUSION: 1. Small left pneumothorax. 2. Acute left second through seventh rib fractures and left scapular fracture. 3. Scattered areas of dependent atelectasis. Satnam Egan Jr., MD Cervical Spine CT 08/29/171834 Signed Impressions: Service Date/Time: August 18:47 - CONCLUSION: 1. No fracture or dislocation. 2. Multilevel degenerative changes. Satnam Egan Jr., MD Abdomen/Pelvis CT 08/29/171834 Signed Impressions: Service Date/Time: August 18:54 - CONCLUSION: 1. Acute fractures involving the superior and inferior pubic rami on the left with an associated small hematoma within the pelvis. Satnam Egan Jr., MD Objective Remarks LLE: +short leg splint present in good repair. +cap refill. Leg elevated Assessment & Plan Assessment and Plan 1) Left distal Tibia and fibula fxs s/p IMN - POD 3 -NWB -elevate -maintain splint at all times -DVT prophylaxis -DC to SNF as patient lives alone with help -ortho clear for DC -f/u with [facility] or [facility] in 2 weeks Trevor Clark PA/[employer] Sep 02, 2017 06:27
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
[2017-09-02] MEDS: LACTULOSE SYRUP 20 GM/30 ML CUP PO SCH (09:00)
[2017-09-02] MEDS: MAGNESIUM HYDROXIDE SUSP 30 ML CUP PO SCH ×2 (09:00→20:22)
[2017-09-02] MEDS: GABAPENTIN 300 MG CAP PO SCH ×3 (09:58→18:00)
[2017-09-02] MEDS: ASCORBIC ACID 500 MG TAB PO SCH (09:58)
[2017-09-02] MEDS: CALCIUM/VITAMIN D 250 MG/125 U TAB PO SCH ×3 (09:59→18:00)
[2017-09-02] MEDS: CHOLECALCIFEROL (VIT D3) 1000 UNIT TAB PO SCH (09:59)
[2017-09-02] MEDS: FAMOTIDINE 20 MG TAB PO SCH ×2 (09:59→20:22)
[2017-09-02] MEDS: DOCUSATE SODIUM 50 MG/SENNA 8.6 MG TAB PO SCH ×2 (09:59→20:22)
[2017-09-02] MEDS: ONDANSETRON HCL 4 MG/2 ML VIAL IV PUSH PRN (10:06)
[2017-09-02] MEDS ORDERED: fentaNYL 50 MCG/HR PATCH T-DERMAL SCH (12:00)
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
[2017-09-02] MEDS: LIDOCAINE HCL 5% PATCH T-DERMAL SCH (20:22)
[2017-09-02] MEDS: REMOVE OLD LIDOCAINE PATCH T-DERMAL SCH (23:19)
[2017-09-03] VITALS (7 sets, daily range): BP systolic 129–134; BP diastolic 78–86; PULSE 68–76; RESP 17–18; TEMP 96.7–97.3; O2SAT 93–98
[2017-09-03] MEDS: RESP: ALBUTEROL 2.5 MG/IPRATROPIUM 0.5 MG NEB (SCH) NEB ×3 (03:21→15:10)
[2017-09-03] MEDS: METHOCARBAMOL 500 MG TAB PO SCH ×2 (05:35→14:34)
[2017-09-03] MEDS: KETOROLAC TROMETHAMINE 30 MG/ML (IVP) VIAL IV PUSH SCH ×2 (05:36→11:53)
--- NOTE | 2017-09-03 06:31 | PD.ORT.PN ---
Subjective Subjective Remarks POD 4 s/p IMN left tibia and ORIF left distal fibula s/p left superior rami fx s/p left scapula fx resting comfortably. no complaints. states pain controlled. Objective Vitals Vital Signs Date Time Temp Pulse Resp B/P (MAP) Pulse Ox O2 Delivery O2 Flow Rate FiO2 09/03/17 06:27 68 09/03/17 05:47 96.7 69 18 134/79 (97) 95 09/03/17 03:25 97 Nasal Cannula 3.00 09/02/17 23:45 97.4 76 18 138/79 (98) 97 09/02/17 20:21 97.6 71 18 121/70 (87) 98 09/02/17 19:49 73 09/02/17 16:09 97.2 88 19 100/62 (75) 93 09/02/17 15:52 95 Nasal Cannula 3.00 09/02/17 12:00 96.3 68 18 99/54 (69) 97 09/02/17 09:20 Nasal Cannula 5.00 Humidified 09/02/17 08:23 95 Nasal Cannula 3.00 I/O 09/02/17 09/02/17 09/02/17 09/03/17 09/03/17 09/03/17 07:00 15:00 23:00 07:00 15:00 23:00 Intake Total 240 ml 1320 ml 480 ml Balance 240 ml 1320 ml 480 ml Intake Oral 240 ml 1320 ml 480 ml # Voids 1 6 3 # Bowel Movements 0 0 0 Result Diagram: 09/02/17 0323 09/02/17 0323 Imaging Last 24 hours Impressions Chest X-Ray 08/30/17 0000 Signed Impressions: Service Date/Time: Wednesday, August 30, 2017 04:12 - CONCLUSION: 1. Interval development of left lower lobe airspace disease and probable small pleural effusion. Grant Kohler MD Thoracic Spine CT 08/29/171834 Signed Impressions: Service Date/Time: August 18:52 - CONCLUSION: No acute disease. Satnam Egan Jr., MD Pelvis X-Ray 08/29/171834 Signed Impressions: Service Date/Time: August 18:35 - CONCLUSION: Acute pubic rami fractures on the left. Satnam Egan Jr., MD Maxillofacial CT 08/29/171834 Signed Impressions: Service Date/Time: August 18:48 - CONCLUSION: No acute disease. Satnam Egan Jr., MD Lumbar Spine CT 08/29/171834 Signed Impressions: Service Date/Time: August 18:52 - CONCLUSION: 1. No fracture or dislocation. 2. Bilateral L5 pars defects with grade 1 anterolisthesis. 3. Degenerative changes. Satnam Egan Jr., MD Head CT 08/29/171834 Signed Impressions: Service Date/Time: August 18:45 - CONCLUSION: No acute disease. Satnam Egan Jr., MD Chest X-Ray 08/29/171834 Signed Impressions: Service Date/Time: August 18:35 - CONCLUSION: No acute disease. Satnam Egan Jr., MD Chest CT 08/29/171834 Signed Impressions: Service Date/Time: August 18:54 - CONCLUSION: 1. Small left pneumothorax. 2. Acute left second through seventh rib fractures and left scapular fracture. 3. Scattered areas of dependent atelectasis. Satnam Egan Jr., MD Cervical Spine CT 08/29/171834 Signed Impressions: Service Date/Time: August 18:47 - CONCLUSION: 1. No fracture or dislocation. 2. Multilevel degenerative changes. Satnam Egan Jr., MD Abdomen/Pelvis CT 08/29/171834 Signed Impressions: Service Date/Time: August 18:54 - CONCLUSION: 1. Acute fractures involving the superior and inferior pubic rami on the left with an associated small hematoma within the pelvis. Satnam Egan Jr., MD Objective Remarks LLE: +short leg splint present in good repair. +cap refill. Leg elevated LUE: good motion of shoulder with minimal discomfort. nvi Assessment & Plan Assessment and Plan 1) Left distal Tibia and fibula fxs s/p IMN - POD 4 -NWB -elevate -maintain splint at all times -DVT prophylaxis -DC to SNF as patient lives alone with help -ortho clear for DC -f/u with [facility] or PA in 2 weeks 2) Left Superior Rami Fx - nonop -NWB due to tibia 3) Left Scapula Fx - nonop -WBAT Trevor Clark PA/Bending Press Operator PA Sep 03, 2017 06:31
[2017-09-03] MEDS: GABAPENTIN 300 MG CAP PO SCH ×2 (09:00→14:34)
[2017-09-03] MEDS: LACTULOSE SYRUP 20 GM/30 ML CUP PO SCH (09:00)
[2017-09-03] MEDS: MAGNESIUM HYDROXIDE SUSP 30 ML CUP PO SCH (09:00)
[2017-09-03] MEDS: REMOVE OLD LIDOCAINE PATCH T-DERMAL SCH (09:00)
[2017-09-03] MEDS: ASCORBIC ACID 500 MG TAB PO SCH (10:30)
[2017-09-03] MEDS: FAMOTIDINE 20 MG TAB PO SCH (10:30)
[2017-09-03] MEDS: CHOLECALCIFEROL (VIT D3) 1000 UNIT TAB PO SCH (10:30)
[2017-09-03] MEDS: DOCUSATE SODIUM 50 MG/SENNA 8.6 MG TAB PO SCH (10:30)
[2017-09-03] MEDS: CALCIUM/VITAMIN D 250 MG/125 U TAB PO SCH ×2 (10:30→14:34)
[2017-09-03] MEDS ORDERED: LIDO1ADH4 T-DERMAL (10:40)
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
[2017-09-05] MEDS ORDERED: REMOVE OLD DURAGESIC (FENTANYL) PATCH T-DERMAL SCH (12:00)
== END 2017-09-03 16:03 | DRG 958 ==
LOC: NEPI 18:33 → EDBD 19:03 → NEDA 19:03 → N03A 19:24 → N06B 08-30 11:24 → N06A 08-30 15:02
PROVIDERS: ADMIT Surgery Trauma Surgery; ATTEND Surgery Trauma Surgery
PROC: 0QSHXZZ Reposition Left Tibia, External Approach (ICD-10-PCS; principal; 2017-08-29)
PROC: 0QSH06Z Reposition Left Tibia with Intramedullary Internal Fixation Device, Open Approach (ICD-10-PCS; 2017-08-30)
PROC: 0QSK04Z Reposition Left Fibula with Internal Fixation Device, Open Approach (ICD-10-PCS; 2017-08-30)
DX: S82.392A Other fracture of lower end of left tibia, initial encounter for closed fracture (principal); S27.0XXA Traumatic pneumothorax, initial encounter; S22.42XA Multiple fractures of ribs, left side, initial encounter for closed fracture; S32.512A Fracture of superior rim of left pubis, initial encounter for closed fracture; S27.321A Contusion of lung, unilateral, initial encounter; S06.0X9A Concussion with loss of consciousness of unspecified duration, initial encounter; S82.832A Other fracture of upper and lower end of left fibula, initial encounter for closed fracture; V89.2XXA Person injured in unspecified motor-vehicle accident, traffic, initial encounter; Y92.410 Unspecified street and highway as the place of occurrence of the external cause; S30.0XXA Contusion of lower back and pelvis, initial encounter; E03.9 Hypothyroidism, unspecified; S42.192A Fracture of other part of scapula, left shoulder, initial encounter for closed fracture; E87.6 Hypokalemia; F17.210 Nicotine dependence, cigarettes, uncomplicated
CPT/HCPCS: 70450; 70486; 71045; 71260; 72125; 72129; 72132; 72170; 73590; 73600; 73620; 74177; 76000; 80048; 80053; 80307; 83735; 84100; 85025; 85610; 85730; 86850; 86900; 86901; 87641; 93005; 94150; 94640; 94664; 94667; 94668; C1713; J0131; J0330; J0690; J1100; J1580; J1650; J1885; J2270; J2370; J2405; J2550; J2765; J3010; J3370; J7030; J7050; J7120; Q9967